=== PATIENT | female | born 1960 | race Caucasian/White ===

== ENCOUNTER 2020-10-31 15:22 | Outpatient (CLI) | payer OTHER ==
[2020-10-31 16:27] LABS: #Basophils 0.1 10x3/uL (0.0-0.2); #Eosinphils 0.5 10x3/uL (0.0-0.5); #Monocytes 0.9 10x3/uL (0.0-1.1); #Neutrophils 2.7 10x3/uL (1.5-8.4); %Basophils 0.8 % (0.0-2.0); %Eosinophils 6.4 % (0.0-6.0); %Lymphocytes 42.9 % (18.0-47.0); %Monocytes 11.9 % (0.0-10.0); %Neutrophils 37.7 % (40.0-75.0); Hemoglobin 15.8 g/dL (12.0-15.5); Mean Corpuscular HGB CONC 33.8 g/dL (32.0-36.0); Mean Corpuscular Hemoglobin 30.9 pg (27.0-33.0); Mean Corpuscular Volume 91.4 fl (81.6-98.3); Mean Platelet Volume 11.1 fl (7.4-10.4); Platelet Count 234 10x3/uL (150-450); RBC Distribution Width 12.8 % (11.5-14.5); Red Blood Cell (RBC) Count 5.11 10x6/uL (3.90-5.03); White Blood Cell (WBC) Count 7.2 10x3/uL (3.5-10.5)
[2020-10-31 16:30] LABS: ALT (SGPT) 72 U/L (8-55); AST (SGOT) 36 U/L (5-34); Albumin 4.5 g/dL (3.5-5.0); Alkaline Phosphatase 119 U/L (40-110); Anion Gap 16 mmol/L (10-20); BUN (Urea Nitrogen) 13 mg/dL (9.8-20.1); Bilirubin, Total 0.5 mg/dL (0.2-1.2); Calc. Creatinine Clearance 0 mL/min (70-130); Calcium 9.6 mg/dL (7.8-10.44); Carbon Dioxide 25 mmol/L (22-29); Chloride 104 mmol/L (98-107); Globulin 3.8 g/dL (2.4-3.5); Glucose 94 mg/dL (70-105); Protein, Total 8.3 g/dL (6.0-8.3); Sodium 141 mmol/L (136-145)
[2020-11-01 12:45] LABS: SARS-CoV-2 PCR by NAA Not Detected (NotDetected)
== END 2020-10-31 15:23 | disposition home or self-care (01) ==
LOC: LABBT 15:22
PROVIDERS: ATTEND Internal Medicine Cardiovascular Disease
DX: Z01.812 Encounter for preprocedural laboratory examination (principal); R07.9 Chest pain, unspecified; Z20.822 Contact with and (suspected) exposure to COVID-19
CPT/HCPCS: 80053; 85025; U0003; U0005

== ENCOUNTER 2020-11-05 05:46 | Day surgery (SDC) | payer OTHER ==
[2020-11-04 11:59] VITALS: BMI 33.6
[2020-11-05] MEDS ORDERED: Lidocaine 1% (PF) 30 ML VIAL ONE (06:37)
[2020-11-05] MEDS ORDERED: Midazolam HCl 2 mg/2 ml Vial ONE (07:06)
[2020-11-05] MEDS ORDERED: Fentanyl 100 MCG/2 ML VIAL ONE (07:06)
[2020-11-05 07:34] LABS: Cardiac Risk 3.8 (Less than 4.5)
[2020-11-05] MEDS ORDERED: Iopamidol 370 76% 100 ML VIAL ONE (09:04)
== END 2020-11-05 10:24 | disposition home or self-care (01) ==
LOC: CCL 05:46
PROVIDERS: ATTEND Internal Medicine Cardiovascular Disease
PROC: B2111ZZ Fluoroscopy of Multiple Coronary Arteries using Low Osmolar Contrast (ICD-10-PCS; principal; 2020-11-05)
PROC: 4A023N7 Measurement of Cardiac Sampling and Pressure, Left Heart, Percutaneous Approach (ICD-10-PCS; principal; 2020-11-05)
DX: R07.89 Other chest pain (principal); R06.02 Shortness of breath; I10 Essential (primary) hypertension; Z79.899 Other long term (current) drug therapy
CPT/HCPCS: 36415; 80061; 93458; 99152; 99153; J2001; J2250; J3010; Q9967